=== PATIENT | male | born 1980 | race Caucasian/White ===

== ENCOUNTER 2021-05-13 19:50 | Emergency (ER) | payer OTHER ==
[~2021-05-13] VITALS: Ht 185.4 cm; Wt 195.9 kg
[~2021-05-13 19:50] MED LIST: LIDO2L MM; Veetids 500500 MG PO
== END 2021-05-13 21:29 | disposition home or self-care (01) ==
LOC: ER 19:50
DX: I83.892 Varicose veins of left lower extremity with other complications (principal)
CPT/HCPCS: 99283

== ENCOUNTER 2022-04-27 04:37 | Emergency (ER) | payer OTHER ==
[~2022-04-27] VITALS: Ht 185.4 cm; Wt 190.5 kg
== END 2022-04-27 07:25 | disposition home or self-care (01) ==
LOC: ER 04:37
DX: I83.892 Varicose veins of left lower extremity with other complications (principal); F17.290 Nicotine dependence, other tobacco product, uncomplicated; Z88.0 Allergy status to penicillin; Z91.040 Latex allergy status
CPT/HCPCS: 12020; 99283-25

== ENCOUNTER 2022-12-24 14:06 | Emergency (ER) | payer OTHER ==
[~2022-12-24] VITALS: Ht 188 cm; Wt 181.4 kg
[~2022-12-24 14:06] MED LIST changes: +FUROSEMIDE20 MG PO; +HYDCHL12.5 PO; +KLOR-CON 1010 ME9 PO; +LOSA50 PO
[2022-12-24 14:46] LABS: BASOPHILS ABSOLUTE AUTO 0.05 K/mm3 (0.00-0.23); BASOPHILS PERCENT AUTO 1 % (0-2); EOSINOPHILS PERCENT AUTO 2 % (0-6); Hematocrit 27.8 % (37.0-53.0); Hemoglobin 9.6 g/dL (13.5-17.5); IMMATURE GRAN ABSOLUTE AUTO 0.38 K/mm3 (0.00-0.10); IMMATURE GRAN PERCENT AUTO 4 % (0-1); LYMPHOCYTES ABSOLUTE AUTO 2.31 K/mm3 (0.84-5.20); LYMPHOCYTES PERCENT AUTO 27 % (21-46); MONOCYTES ABSOLUTE AUTO 0.57 K/mm3 (0.16-1.47); MONOCYTES PERCENT AUTO 7 % (4-13); Mean Corpuscular HGB 32.5 pg (26.0-34.0); Mean Corpuscular HGB Conc 34.5 g/dL (31.5-36.5); Mean Corpuscular Volume 94 fL (80-100); Mean Platelet Volume 9.5 fL (9.1-12.4); NEUTROPHILS ABSOLUTE AUTO 5.22 K/mm3 (1.96-9.15); NEUTROPHILS PERCENT AUTO 60 % (41-73); NRBC ABSOLUTE 0.02 K/mm3 (0.00-0.02); NRBC Auto 0.2 /100 WBC (0.0-0.2); Platelet Count 220 K/mm3 (150-400); RDW Coefficient Variation 14.8 % (11.7-14.2); RDW Standard Deviation 50.9 fL (35.1-46.3); Red Blood Cell Count 2.95 M/mm3 (4.30-5.90); White Blood Cell Count 8.73 K/mm3 (4.00-11.30)
[2022-12-24 15:08] LABS: Albumin, Blood 3.8 g/dL (3.4-5.0); Albumin/Globulin Ratio 0.9 (0.8-1.8); Bilirubin, Total 0.6 mg/dL (0.1-1.0); Bun/Creatinine Ratio 13.6 (12.0-20.0); Calcium, Blood 11.4 mg/dL (8.5-10.1); Creatinine, Blood 1.54 mg/dL (0.60-1.20); Globulin, Blood 4.2 g/dL (2.2-4.0); Potassium, Blood 4.2 mmol/L (3.5-5.5)
[2022-12-24] MEDS ORDERED: CYCL10 PO (21:09)
[2022-12-24 21:45] VITALS: BP 160/110
== END 2022-12-24 21:53 | disposition home or self-care (01) ==
LOC: ER 14:06
PROVIDERS: Physician Assistant
DX: S22.069A Unspecified fracture of T7-T8 vertebra, initial encounter for closed fracture (principal); R06.02 Shortness of breath; R07.9 Chest pain, unspecified; X58.XXXA Exposure to other specified factors, initial encounter; Z88.0 Allergy status to penicillin; Z91.040 Latex allergy status; Z79.899 Other long term (current) drug therapy; I10 Essential (primary) hypertension; E11.9 Type 2 diabetes mellitus without complications; F17.210 Nicotine dependence, cigarettes, uncomplicated
CPT/HCPCS: 71260; 80053; 83880; 84484; 85025; 85379; 93005; 93010; A9270; J1170; J1885; Q9967

== ENCOUNTER 2023-01-15 15:05 | Emergency (ER) | payer OTHER ==
[~2023-01-15] VITALS: Ht 188 cm; Wt 170.1 kg
[~2023-01-15 15:05] MED LIST changes: +CYCL10 PO
[2023-01-15 15:29] LABS: Hematocrit 21.9 % (37.0-53.0); Hemoglobin 7.4 g/dL (13.5-17.5); Mean Corpuscular HGB 32.2 pg (26.0-34.0); Mean Corpuscular HGB Conc 33.8 g/dL (31.5-36.5); Mean Corpuscular Volume 95 fL (80-100); Mean Platelet Volume 9.6 fL (9.1-12.4); NRBC ABSOLUTE 0.02 K/mm3 (0.00-0.02); NRBC Auto 0.3 /100 WBC (0.0-0.2); Platelet Count 215 K/mm3 (150-400); RDW Coefficient Variation 15.4 % (11.7-14.2); RDW Standard Deviation 53.1 fL (35.1-46.3); White Blood Cell Count 7.06 K/mm3 (4.00-11.30)
[2023-01-15 15:30] LABS: Base Excess Venous -2.3 mmol/L; Bicarbonate Venous 23.4 mmol/L (24.0-30.0); pH Blood Venous 7.58 (7.34-7.37)
[2023-01-15 16:03] LABS: BAND PERCENT MAN 1 % (0-8); BASOPHILS ABSOLUTE MAN 0.07 K/mm3 (0.00-0.23); BASOPHILS PERCENT MAN 1 % (0-2); EOSINOPHILS PERCENT MAN 0 % (0-6); LYMPHOCYTES PERCENT MAN 27 % (21-46); METAMYELOCYTE ABSOLUTE MAN 0.28 K/mm3 (0.00-0.00); METAMYELOCYTE PERCENT MAN 4 % (0-0); MONOCYTES ABSOLUTE MAN 0.56 K/mm3 (0.16-1.47); MONOCYTES PERCENT MAN 8 % (4-13); MYELOCYTE ABSOLUTE MAN 0.49 K/mm3 (0.00-0.00); MYELOCYTE PERCENT MAN 7 % (0-0); NEUTROPHILS ABSOLUTE MAN 3.74 K/mm3 (1.96-9.15); SEG NEUTROPHILS PERCENT MAN 52 % (41-73); TOTAL CELLS COUNTED 100
[2023-01-15 16:13] LABS: Albumin/Globulin Ratio 0.7 (0.8-1.8); Bilirubin, Total 0.5 mg/dL (0.1-1.0); Bun/Creatinine Ratio 11.4 (12.0-20.0); Calcium, Blood 7.8 mg/dL (8.5-10.1); Creatinine, Blood 1.76 mg/dL (0.60-1.20); Globulin, Blood 4.5 g/dL (2.2-4.0); Potassium, Blood 3.9 mmol/L (3.5-5.5); Total Protein, Blood 7.5 g/dL (6.4-8.2)
[2023-01-15 18:00] VITALS: BP 153/102
[2023-01-15] MEDS ORDERED: ALLOPURINOL100 M1 PO (18:28)
== END 2023-01-15 18:51 | disposition home or self-care (01) ==
LOC: ER 15:05
PROVIDERS: Emergency Medicine
DX: G89.3 Neoplasm related pain (acute) (chronic) (principal); M54.9 Dorsalgia, unspecified; C90.00 Multiple myeloma not having achieved remission; I10 Essential (primary) hypertension; E11.9 Type 2 diabetes mellitus without complications; Z88.0 Allergy status to penicillin; Z91.040 Latex allergy status; Z79.899 Other long term (current) drug therapy
CPT/HCPCS: 71045; 80053; 82803; 85025; 93005; 93010; 94660; 96374; 99285-25; J1170

== ENCOUNTER → 2023-04-28 | Outpatient (CLI) | payer OTHER ==
[~2023-04-28] MED LIST changes: +ALLOPURINOL100 M1 PO
[2023-04-28 16:31] LABS: Albumin, Blood 3.7 g/dL (3.4-5.0); Albumin/Globulin Ratio 1.1 (0.8-1.8); Bilirubin, Total 0.6 mg/dL (0.1-1.0); Bun/Creatinine Ratio 11.5 (12.0-20.0); Calcium, Blood 8.8 mg/dL (8.5-10.1); Creatinine, Blood 1.22 mg/dL (0.60-1.20); Globulin, Blood 3.3 g/dL (2.2-4.0); Potassium, Blood 3.4 mmol/L (3.5-5.5)
== END | disposition home or self-care (01) ==
LOC: LAB 13:35 → LAB SHORT 13:35
PROVIDERS: Internal Medicine Hematology & Oncology
DX: C90.00 Multiple myeloma not having achieved remission (principal)
CPT/HCPCS: 80053

== ENCOUNTER → 2024-07-21 | Outpatient (CLI) | payer OTHER ==
[2024-07-21 14:44] LABS: BASOPHILS ABSOLUTE AUTO 0.06 K/mm3 (0.00-0.23); BASOPHILS PERCENT AUTO 2 % (0-2); EOSINOPHILS ABSOLUTE AUTO 0.37 K/mm3 (0.00-0.68); EOSINOPHILS PERCENT AUTO 10 % (0-6); Hematocrit 31.4 % (37.0-53.0); Hemoglobin 10.9 g/dL (13.5-17.5); IMMATURE GRAN ABSOLUTE AUTO 0.01 K/mm3 (0.00-0.10); IMMATURE GRAN PERCENT AUTO 0 % (0-1); LYMPHOCYTES ABSOLUTE AUTO 1.18 K/mm3 (0.84-5.20); LYMPHOCYTES PERCENT AUTO 33 % (21-46); MONOCYTES ABSOLUTE AUTO 0.29 K/mm3 (0.16-1.47); MONOCYTES PERCENT AUTO 8 % (4-13); Mean Corpuscular HGB Conc 34.7 g/dL (31.5-36.5); Mean Corpuscular Volume 95 fL (80-100); NEUTROPHILS PERCENT AUTO 47 % (41-73); Platelet Count 163 K/mm3 (150-400); RDW Coefficient Variation 14.4 % (11.7-14.2); RDW Standard Deviation 49.5 fL (35.1-46.3); White Blood Cell Count 3.61 K/mm3 (4.00-11.30)
[2024-07-21 15:09] LABS: Albumin, Blood 3.1 g/dL (3.4-5.0); Albumin/Globulin Ratio 0.7 (0.8-1.8); Bilirubin, Total 0.5 mg/dL (0.1-1.0); Bun/Creatinine Ratio 15.6 (12.0-20.0); Creatinine, Blood 1.47 mg/dL (0.60-1.20); Globulin, Blood 4.4 g/dL (2.2-4.0); Potassium, Blood 3.2 mmol/L (3.5-5.5); Total Protein, Blood 7.5 g/dL (6.4-8.2)
[2024-07-25 11:29] LABS: ALBUMIN 3.39 g/dL (3.75-5.01); ALPHA 1 GLOBULIN 0.28 g/dL (0.19-0.46); ALPHA 2 GLOBULIN 0.58 g/dL (0.48-1.05); BETA GLOBULIN 1.13 g/dL (0.48-1.10); GAMMA 1.73 g/dL (0.62-1.51); IMMUNOFIXATION IFE Done; IMMUNOGLOBULIN A 599 mg/dL (68-408); IMMUNOGLOBULIN G 1572 mg/dL (768-1632); IMMUNOGLOBULIN M 53 mg/dL (35-263); KAPPA QNT FREE LIGHT CHAINS 84.22 mg/L (3.30-19.40); KAPPA/LAMBDA FLC RATIO 0.21 (0.26-1.65); TOTAL PROTEIN, SERUM 7.1 g/dL (6.3-8.2)
== END ==
LOC: LAB SHORT 14:35 → LAB 14:35
PROVIDERS: Internal Medicine Hematology & Oncology
DX: C90.00 Multiple myeloma not having achieved remission (principal)
CPT/HCPCS: 80053; 82784; 83521; 84155; 84165; 85025; 86334